=== PATIENT | male | born 1990 | race Caucasian/White ===

== ENCOUNTER 2018-10-28 04:45 | Emergency (ER) | payer BC, OTHER ==
[~2018-10-28] VITALS: Ht 177.8 cm; Wt 99.8 kg
--- OUTSIDE RECORDS SUMMARY | 2018-10-28 04:54 | XMS REPORT ---
Author Author Migration, Doctor Organization [facility] Address Unknown Phone Unavailable Care Team Providers Care Laborer Plumbing Name Role Phone Migration, Doctor Unavailable Unavailable PROBLEMS Type Condition ICD9-CM Code IVX32-CY Code Onset Dates Condition Status SNOMED Code Problem Insulin resistance E88.81 Active 16000042 Problem Seasonal allergies J30.2 Active 610497822 ALLERGIES No Information ENCOUNTERS Encounter Location Date Diagnosis [facility] [address] [address] Nov, Dermatitis due to plants, including poison hernandez, sumac, and oak L25.5 [facility] [address] [place] [address] October, Seasonal allergies J30.2 [facility] [id number] [place] [address] Feb, Allergic contact dermatitis due to plants, except food L23.[address] [address] Nov, Poison hernandez L23.7 and Insulin resistance E88.81 [place] [id number] [place] [address] October, Acute nasopharyngitis J00 and Insulin resistance E88.81 [place] [id number] [place] [address] Jun, [address] [address] Jun, Encounter for preventative adult health care examination Z00.00 and Family history of diabetes mellitus Z83.3 [place] [address] [address] Feb, 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 [facility] [address] [facility] [id number] [address] Feb, 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 [facility] [id number] [address] Sep, [facility] [address], [place] [address] Sep, [facility] [address] [facility] [id number], [place] [address] Jul, [facility] [id number] [place] [address] Jul, [facility] [address], [place] [address] Nov, [facility] [address], [place] [address] October, [facility] [address], [place] [address] October, [facility] [address], [place] [address] October, [facility] [address], [place] [address] Mar, [facility] [address], [place] [address] Mar, [facility] [address], [place] [address] Apr, IMMUNIZATIONS No Known Immunizations SOCIAL HISTORY Never Assessed REASON FOR VISIT [facility] [place] VITAL SIGNS MEDICATIONS No Known Medications RESULTS No Results PROCEDURES No Known procedures INSTRUCTIONS MEDICATIONS ADMINISTERED No Known Medications MEDICAL (GENERAL) HISTORY Type Description Date Medical History Prediabetes Surgical History Right femur repair 2003
--- OUTSIDE RECORDS SUMMARY | 2018-10-28 04:54 | XMS REPORT ---
Author Author TYLER SILVA Organization [facility] IN [facility] Address [address] [place] [address] Care Team Providers Care Director Money Name Role Phone HSIRA TYLER Unavailable PROBLEMS Type Condition ICD9-CM Code RSH33-CU Code Onset Dates Condition Status SNOMED Code Problem Insulin resistance E88.81 Active 75329017 ALLERGIES No Known Allergies ENCOUNTERS Encounter Location Date Diagnosis [facility] IN [facility] [id number] [place] [address] Feb, Allergic contact dermatitis due to plants, except food L23.7 [facility] [id number] [place] [address] Nov, Poison hernandez L23.7 and Insulin resistance E88.81 [facility] [id number] [place] [address] October, Acute nasopharyngitis J00 and Insulin resistance E88.81 [facility] [id number] [place] [address] Jun, [facility] [id number] [place] [address] Jun, Encounter for preventative adult health care examination Z00.00 and Family history of diabetes mellitus Z83.3 [facility] [id number] [place] [address] Feb, 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 [facility] [address] [place] [address] Feb, 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 [facility] [id number] [address] Sep, [facility] [id number] [address] Sep, [facility] [address] [address] Jul, [facility] [address] [address] Jul, [facility] [address] [address] Nov, [facility] [address] [address] October, [facility] [address] [address] October, [facility] [id number] [address] October, [facility] [address] [address] Mar, [facility] [address] [address] Mar, [facility] [id number] [address] Apr, IMMUNIZATIONS Vaccine Route Administration Date Status DEXAMETHASONE 4MG/ML (PER 1 MG) IM Intramuscular Feb 13, 2017 Administered DEPO MEDROL 80 MG/ML IM Intramuscular Feb 13, 2017 Administered SOCIAL HISTORY Never Assessed REASON FOR VISIT poison hernandez started Wednesday, Sinus congestion with itchy watery eyes started phillip Wall PLAN OF CARE Activity Details Follow Up prn Reason: VITAL SIGNS Height 68 in 2017-02-13 Weight 228.2 lbs 2017-02-13 Temperature 97.7 degrees Fahrenheit 2017-02-13 Heart Rate 80 bpm 2017-02-13 Respiratory Rate 20 2017-02-13 BMI 34.69 kg/m2 2017-02-13 Blood pressure systolic 110 mmHg 2017-02-13 Blood pressure diastolic 80 mmHg 2017-02-13 MEDICATIONS No Known Medications RESULTS No Results PROCEDURES Procedure Date Ordered Result Body Site DEPO MEDROL 80 MG/ML Feb 13, 2017 THER/PROPH/DIAG INJ, SC/IM Feb 13, 2017 DEXAMETHASONE 4MG/ML (PER 1 MG) Feb 13, 2017 INSTRUCTIONS MEDICATIONS ADMINISTERED No Known Medications MEDICAL (GENERAL) HISTORY Type Description Date Medical History Prediabetes Surgical History Right femur repair 2003
--- OUTSIDE RECORDS SUMMARY | 2018-10-28 04:54 | XMS REPORT ---
Author Author NAOMI POWELL Organization [facility] Address [address] [place] [address] Care Team Providers Care Manager Cargo Name Role Phone NAOMI POWELL Unavailable PROBLEMS Type Condition ICD9-CM Code FCU40-PM Code Onset Dates Condition Status SNOMED Code Problem Seasonal allergies J30.2 Active 850226512 Problem Insulin resistance E88.81 Active 89979260 ALLERGIES No Known Allergies ENCOUNTERS Encounter Location Date Diagnosis [facility] [address] [address] Nov, Dermatitis due to plants, including poison hernandez, sumac, and oak L25.5 [facility] [id number] [place] [address] October, Seasonal allergies J30.2 [facility] [address] [address] Feb, Allergic contact dermatitis due to plants, except food L23.7 [place] [id number] [place] [address] Nov, Poison hernandez L23.7 and Insulin resistance E88.81 [place] [id number] [place] [address] October, Acute nasopharyngitis J00 and Insulin resistance E88.81 [place] [address] [address] Jun, [address] [address] Jun, Encounter for preventative adult health care examination Z00.00 and Family history of diabetes mellitus Z83.3 [place] [address], [place] [address] Feb, 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 paralysis/Joanna palsy G51.0 [facility] [address], [place] [address] Feb, 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 paralysis/Joanna palsy G51.0 [facility] [address], [place] [address] Sep, [facility] [address], [place] [address] Sep, [facility] [id number] [place] [address] Jul, [facility] [address] [place] [address] Jul, [facility] [id number] [place] [address] Nov, [facility] [address], [place] [address] October, [facility] [id number] [place] [address] October, [facility] [address], [place] [address] October, [facility] [address], [place] [address] Mar, [facility] [address], [place] [address] Mar, [facility] [id number], [place] [address] Apr, IMMUNIZATIONS No Known Immunizations SOCIAL HISTORY Never Assessed REASON FOR VISIT Rash started yesterday JStrasserRN PLAN OF CARE Activity Details Follow Up 1 Week, prn Reason:if rash worsens or not improving VITAL SIGNS Height 68 in 2017-12-04 Weight 247.0 lbs 2017-12-04 Temperature 97.0 degrees Fahrenheit 2017-12-04 Heart Rate 72 bpm 2017-12-04 Respiratory Rate 20 2017-12-04 BMI 37.55 kg/m2 2017-12-04 Blood pressure systolic 110 mmHg 2017-12-04 Blood pressure diastolic 74 mmHg 2017-12-04 MEDICATIONS Medication Instructions Dosage Frequency Start Date End Date Duration Status Cetirizine HCl 10 MG Orally Once a day 1 tablet 24h 30 day(s) Not-Taking Cetirizine HCl 10 mg Orally Once a day 1 tablet 24h Nov, Dec, 07 days Active PredniSONE 20 mg Orally Once a day 2 tablets 24h Nov, Dec, 05 days Active MetFORMIN HCl ER 500 mg Orally Once a day at hs for 7 days, then 1 tab BID for 7 days then 2 tabs 2 times per day 1 tablet with evening meal Jun, 30 day(s) Not-Taking RESULTS No Results PROCEDURES No Known procedures INSTRUCTIONS MEDICATIONS ADMINISTERED No Known Medications MEDICAL (GENERAL) HISTORY Type Description Date Medical History Prediabetes Surgical History Right femur repair 2003
--- OUTSIDE RECORDS SUMMARY | 2018-10-28 04:54 | XMS REPORT ---
Author Author Migration, Doctor Organization [facility] Address Unknown Phone Unavailable Care Team Providers Care Sales Systems Engineer Name Role Phone Migration, Doctor Unavailable Unavailable PROBLEMS Type Condition ICD9-CM Code CCX35-ZL Code Onset Dates Condition Status SNOMED Code Problem Insulin resistance E88.81 Active 73302132 Problem Seasonal allergies J30.2 Active 737957090 ALLERGIES No Information ENCOUNTERS Encounter Location Date Diagnosis [facility] [address] [address] Nov, Dermatitis due to plants, including poison hernandez, sumac, and oak L25.5 [facility] [address] [place] [address] October, Seasonal allergies J30.2 [facility] [id number] [place] [address] Feb, Allergic contact dermatitis due to plants, except food L23.[address] [address] Nov, Poison hernandez L23.7 and Insulin resistance E88.81 [place] [id number] [place] [address] October, Acute nasopharyngitis J00 and Insulin resistance E88.81 [place] [id number] [place] [address] Jun, [address] [address] Jun, Encounter for preventative adult health care examination Z00.00 and Family history of diabetes mellitus Z83.3 [place] [address] [address] Feb, 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 [facility] [address] [address] Feb, 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 [facility] [address] [address] Sep, [facility] [id number] [place] [address] Sep, [facility] [address] [address] Jul, [facility] [id number] [place] [address] Jul, [facility] [id number] [place] [address] Nov, [facility] [id number] [place] [address] October, [facility] [address] [place] [address] October, [facility] [id number] [place] [address] October, [facility] [address] [address] Mar, [facility] [address] [address] Mar, [facility] [address] [address] Apr, IMMUNIZATIONS No Known Immunizations SOCIAL HISTORY Never Assessed REASON FOR VISIT [facility] [place] PLAN OF CARE VITAL SIGNS MEDICATIONS Medication Instructions Dosage Frequency Start Date End Date Duration Status Augmentin 875-125 mg 1 Tablet by Po route 2 times per day take with food. Jul, Active RESULTS No Results PROCEDURES No Known procedures INSTRUCTIONS MEDICATIONS ADMINISTERED No Known Medications MEDICAL (GENERAL) HISTORY Type Description Date Medical History Prediabetes Surgical History Right femur repair 2003
--- OUTSIDE RECORDS SUMMARY | 2018-10-28 04:54 | XMS REPORT ---
Author Author LILIA CHRIS [facility] Address [address] [place] [address] Care Team Providers Care Hvac Design Mechanical Engineer Name Role Phone LILIA CHRIS Unavailable PROBLEMS Type Condition ICD9-CM Code VAF84-DO Code Onset Dates Condition Status SNOMED Code Problem Insulin resistance E88.81 Active 46678976 ALLERGIES Substance Reaction Event Type Date Status N.K.D.A. Unknown Non Drug Allergy Jun, Unknown SOCIAL HISTORY No smoking Hx information available PLAN OF CARE VITAL SIGNS MEDICATIONS Medication Instructions Dosage Frequency Start Date End Date Duration Status MetFORMIN HCl ER 500 MG Orally Once a day at hs for 7 days, then 1 tab BID for 7 days then 2 tabs 2 times per day 1 tablet with evening meal Jun, 30 day(s) Active RESULTS No Results PROCEDURES No Known procedures IMMUNIZATIONS No Known Immunizations
--- OUTSIDE RECORDS SUMMARY | 2018-10-28 04:54 | XMS REPORT ---
Author Author LILIA CHRIS [facility] Address [address] [place] [address] Care Team Providers Care Rcp Name Role Phone LILIA CHRIS Unavailable PROBLEMS Type Condition ICD9-CM Code VPV39-DP Code Onset Dates Condition Status SNOMED Code Problem Insulin resistance E88.81 Active 13766348 ALLERGIES Substance Reaction Event Type Date Status N.K.D.A. Unknown Non Drug Allergy Jun, Unknown SOCIAL HISTORY No smoking Hx information available PLAN OF CARE Activity Details Follow Up prn Reason: VITAL SIGNS Height 68 in 2016-06-29 Weight 236.2 lbs 2016-06-29 Temperature 97.6 degrees Fahrenheit 2016-06-29 Heart Rate 84 bpm 2016-06-29 Respiratory Rate 18 2016-06-29 BMI 35.91 kg/m2 2016-06-29 Blood pressure systolic 116 mmHg 2016-06-29 Blood pressure diastolic 88 mmHg 2016-06-29 MEDICATIONS No Known Medications RESULTS Name Result Date Reference Range INSULIN LEVEL 2016-06-29 Insulin 67.6 2.6-24.9 A1C (IN HOUSE) 2016-06-29 A1C IN HOUSE 5.3 4.3 - 5.6 % Previous A1c n/a Lot [id number] Exp date 03/2018 CMP 2016-06-29 Glucose, Serum 107 65-99 BUN 9 6-20 Creatinine, Serum 0.99 0.76-1.27 eGFR If NonAfricn Am 105 >59 eGFR If Africn Am 121 >59 BUN/Creatinine Ratio 9 8-19 Sodium, Serum 139 134-144 Potassium, Serum 4.2 3.5-5.2 Chloride, Serum 101 96-106 Carbon Dioxide, Total 22 18-29 Calcium, Serum 9.2 8.7-10.2 Protein, Total, Serum 7.2 6.0-8.5 Albumin, Serum 4.4 3.5-5.5 Globulin, Total 2.8 1.5-4.5 A/G Ratio 1.6 1.1-2.5 Bilirubin, Total <0.2 0.0-1.2 Alkaline Phosphatase, S 99 39-117 AST (SGOT) 37 0-40 ALT (SGPT) 44 0-44 PROCEDURES Procedure Date Ordered Related Diagnosis Body Site COMPREHEN METABOLIC PANEL Jun 29, 2016 GLYCATED HEMOGLOBIN TEST Jun 29, 2016 Preventive Care Est Pt. Age 18-39 Jun 29, 2016 ASSAY OF INSULIN Jun 29, 2016 VENIPUNCT, ROUTINE* Jun 29, 2016 IMMUNIZATIONS No Known Immunizations
--- OUTSIDE RECORDS SUMMARY | 2018-10-28 04:54 | XMS REPORT ---
Author Author LUIS LAW [facility] Address [address] [place] [address] Care Team Providers Care Tax Staff Accountant Name Role Phone LUIS LAW Unavailable PROBLEMS Type Condition ICD9-CM Code RRA50-HP Code Onset Dates Condition Status SNOMED Code Problem Insulin resistance E88.81 Active 63983552 ALLERGIES No Known Allergies SOCIAL HISTORY Never Assessed PLAN OF CARE Activity Details Follow Up 3 Months Reason: VITAL SIGNS Height 68 in 2016-10-16 Weight 230 lbs 2016-10-16 Temperature 98.6 degrees Fahrenheit 2016-10-16 Heart Rate 78 bpm 2016-10-16 Respiratory Rate 18 2016-10-16 BMI 34.97 kg/m2 2016-10-16 Blood pressure systolic 116 mmHg 2016-10-16 Blood pressure diastolic 74 mmHg 2016-10-16 MEDICATIONS Medication Instructions Dosage Frequency Start Date End Date Duration Status MetFORMIN HCl ER 500 mg Orally Once a day at hs for 7 days, then 1 tab BID for 7 days then 2 tabs 2 times per day 1 tablet with evening meal Jun, 30 day(s) Active Pseudoephedrine HCl 60 mg Orally every 6 hrs 1 tablet as needed 6h October, 05 days Active RESULTS No Results PROCEDURES No Known procedures IMMUNIZATIONS No Known Immunizations MEDICAL (GENERAL) HISTORY Type Description Date Medical History Prediabetes Surgical History Right femur repair 2003
--- OUTSIDE RECORDS SUMMARY | 2018-10-28 04:54 | XMS REPORT ---
Author Author TONY CHAMORRO [facility] Address [address] [place] [address] Care Team Providers Care Best Worker Name Role Phone TONY CHAMORRO Unavailable PROBLEMS Type Condition ICD9-CM Code DMM67-DQ Code Onset Dates Condition Status SNOMED Code Problem Seasonal allergies J30.2 Active 660143781 Problem Insulin resistance E88.81 Active 25197369 ALLERGIES No Known Allergies ENCOUNTERS Encounter Location Date Diagnosis [facility] [address] [address] Nov, Dermatitis due to plants, including poison hernandez, sumac, and oak L25.5 [facility] [address] [address] October, Seasonal allergies J30.2 [facility] [address] [address] 09 Feb, 2017 Allergic contact dermatitis due to plants, except food L23.7 [place] [address] [address] Nov, Poison hernandez L23.7 and Insulin resistance E88.81 [place] [address] [id number] [place] [address] October, Acute nasopharyngitis J00 and Insulin resistance E88.81 [place] [address] [address] Jun, [place] [id number] [place] [address] Jun, Encounter for preventative adult health care examination Z00.00 and Family history of diabetes mellitus Z83.3 [place] [address], [place] [address] Feb, 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 [facility] [address], [place] [address] Feb, 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 [facility] [address] [place] [address] Sep, [facility] [address] [place] [address] Sep, [facility] [id number] [place] [address] Jul, [facility] [id number] [place] [address] Jul, [facility] [id number] [place] [address] Nov, [facility] [id number] [place] [address] October, [facility] [id number] [place] [address] October, [facility] [address], [place] [address] October, [facility] [address] [place] [address] Mar, [facility] [address], [place] [address] Mar, [facility] [id number] [place] [address] Apr, IMMUNIZATIONS No Known Immunizations SOCIAL HISTORY Never Assessed REASON FOR VISIT congestion Pt c/o cough for over a week to the point of vomiting DEEPAK Goncalves PLAN OF CARE Activity Details Follow Up prn Reason: VITAL SIGNS Height 68 in 2017-10-19 Weight 243.6 lbs 2017-10-19 Temperature 98.0 degrees Fahrenheit 2017-10-19 Heart Rate 88 bpm 2017-10-19 Respiratory Rate 20 2017-10-19 BMI 37.04 kg/m2 2017-10-19 Blood pressure systolic 112 mmHg 2017-10-19 Blood pressure diastolic 64 mmHg 2017-10-19 MEDICATIONS Medication Instructions Dosage Frequency Start Date End Date Duration Status MetFORMIN HCl ER 500 mg Orally Once a day at hs for 7 days, then 1 tab BID for 7 days then 2 tabs 2 times per day 1 tablet with evening meal Jun, 30 day(s) Not-Taking Pseudoephedrine HCl 60 mg Orally every 6 hrs 1 tablet as needed 6h October, 05 days Not-Taking Cetirizine HCl 10 MG Orally Once a day 1 tablet 24h 30 day(s) Active RESULTS No Results PROCEDURES No Known procedures INSTRUCTIONS MEDICATIONS ADMINISTERED No Known Medications MEDICAL (GENERAL) HISTORY Type Description Date Medical History Prediabetes Surgical History Right femur repair 2003
--- OUTSIDE RECORDS SUMMARY | 2018-10-28 04:54 | XMS REPORT ---
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 Unknown Non Drug Allergy Feb, Unknown SOCIAL HISTORY No smoking Hx information available PLAN OF CARE VITAL SIGNS Height 68 in 2016-02-26 Weight 217.6 lbs 2016-02-26 Heart Rate 80 bpm 2016-02-26 Respiratory Rate 18 2016-02-26 BMI 33.08 kg/m2 2016-02-26 Blood pressure systolic 144 mmHg 2016-02-26 Blood pressure diastolic 88 mmHg 2016-02-26 MEDICATIONS Medication Instructions Dosage Frequency Start Date End Date Duration Status Nasal Allergy Active PredniSONE 10 mg Orally twice a day 1 tablet 12h Feb, Feb, Active [facility] Lubricant Eye Drops 0.5 % Ophthalmic 5 times per day 1 drop into affected eye as needed Feb, Active RESULTS No Results PROCEDURES Procedure Date Ordered Related Diagnosis Body Site Office Visit, Est Pt., Level 3 Feb 26, 2016 DEXAMETHASONE 4MG/ML (PER 1 MG) Feb 26, 2016 THER/PROPH/DIAG INJ, SC/IM Feb 26, 2016 IMMUNIZATIONS Vaccine Route Administration Date Status DEXAMETHASONE 4MG/ML (PER 1 MG) IM Intramuscular Feb 26, 2016 Administered
--- OUTSIDE RECORDS SUMMARY | 2018-10-28 04:54 | XMS REPORT ---
Author Author LUIS LAW [facility] Address [address] [place] [address] Care Team Providers Care Hearing Aid Fitter Name Role Phone LUIS LAW Unavailable PROBLEMS Type Condition ICD9-CM Code TAY56-ED Code Onset Dates Condition Status SNOMED Code Problem Insulin resistance E88.81 Active 80052700 ALLERGIES No Known Allergies ENCOUNTERS Encounter Location Date Diagnosis [facility] [id number] [place] [phone] Feb, Allergic contact dermatitis due to plants, except food L23.7 [facility] [id number] [place] [phone] Nov, Poison hernandez L23.7 and Insulin resistance E88.81 [facility] [id number] [place] [address] October, Acute nasopharyngitis J00 and Insulin resistance E88.81 [facility] [id number] [place] [address] Jun, [facility] [id number] [place] [phone] Jun, Encounter for preventative adult health care examination Z00.00 and Family history of diabetes mellitus Z83.3 [facility] [id number] [place] [phone] Feb, 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 paralysis/Benedicta palsy G51.0 [facility] [id number] [place] [phone] Feb, 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 paralysis/Benedicta palsy G51.0 [facility] [address] [address] Sep, [facility] [address] [address] Sep, [facility] [address] [address] Jul, [facility] [address] [address] Jul, [facility] [id number] [place] [phone] Nov, [facility] [id number] [place] [phone] October, [facility] [id number] [place] [phone] October, [facility] [id number] [place] [phone] October, [facility] [address] [address] Mar, [facility] [id number] [place] [phone] Mar, [facility] [address] [address] Apr, IMMUNIZATIONS No Known Immunizations SOCIAL HISTORY Never Assessed REASON FOR VISIT Rash - Has had a rash on the arms, legs, and torso for a couple days and tried o tc hydrocortisone cream and its not working. It is worse when he gets hot. - JUSITN garcia MA PLAN OF CARE Activity Details Follow Up 3 Months Reason: VITAL SIGNS Height 68 in 2016-11-06 Weight 231.6 lbs 2016-11-06 Temperature 98.2 degrees Fahrenheit 2016-11-06 Heart Rate 84 bpm 2016-11-06 Respiratory Rate 20 2016-11-06 BMI 35.21 kg/m2 2016-11-06 Blood pressure systolic 132 mmHg 2016-11-06 Blood pressure diastolic 84 mmHg 2016-11-06 MEDICATIONS Medication Instructions Dosage Frequency Start Date End Date Duration Status PredniSONE 50 mg Orally Once a day 1 tablet 24h Nov, Nov, 05 days Active RESULTS No Results PROCEDURES No Known procedures INSTRUCTIONS MEDICATIONS ADMINISTERED No Known Medications MEDICAL (GENERAL) HISTORY Type Description Date Medical History Prediabetes Surgical History Right femur repair 2003
--- OUTSIDE RECORDS SUMMARY | 2018-10-28 04:54 | XMS REPORT ---
Author Author Migration, Doctor Organization [facility] Address Unknown Phone Unavailable Care Team Providers Care Blanket Inspector Name Role Phone Migration, Doctor Unavailable Unavailable PROBLEMS Type Condition ICD9-CM Code FBL78-YI Code Onset Dates Condition Status SNOMED Code Problem Insulin resistance E88.81 Active 64392432 Problem Seasonal allergies J30.2 Active 223025450 ALLERGIES No Information ENCOUNTERS Encounter Location Date Diagnosis [facility] [address] [address] Nov, Dermatitis due to plants, including poison hernandez, sumac, and oak L25.5 [facility] [address] [place] [address] October, Seasonal allergies J30.2 [facility] [id number] [place] [address] Feb, Allergic contact dermatitis due to plants, except food L23.[address] [address] Nov, Poison hernandez L23.7 and Insulin resistance E88.81 [place] [facility] [id number] [place] [address] October, Acute nasopharyngitis J00 and Insulin resistance E88.81 [facility] [facility] [id number] [place] [address] Jun, [address] [address] Jun, Encounter for preventative adult health care examination Z00.00 and Family history of diabetes mellitus Z83.3 [place] [address] [address] Feb, 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 paralysis/Pillow palsy G51.0 [facility] [address] [facility] [id number] [address] Feb, 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 paralysis/Pillow palsy G51.0 [facility] [id number] [address] Sep, [facility] [address] [address] Sep, [facility] [address] [facility] [id number] [address] Jul, [facility] [id number] [place] [address] Jul, [facility] [address] [address] Nov, [facility] [address] [address] October, [facility] [address] [address] October, [facility] [address] [address] October, [facility] [address] [address] Mar, [facility] [address] [address] Mar, [facility] [address] [address] Apr, IMMUNIZATIONS No Known Immunizations SOCIAL HISTORY Never Assessed REASON FOR VISIT [facility] PLAN OF CARE VITAL SIGNS MEDICATIONS No Known Medications RESULTS No Results PROCEDURES No Known procedures INSTRUCTIONS MEDICATIONS ADMINISTERED No Known Medications MEDICAL (GENERAL) HISTORY Type Description Date Medical History Prediabetes Surgical History Right femur repair 2003
--- OUTSIDE RECORDS SUMMARY | 2018-10-28 04:55 | XMS REPORT | Continuity of Care Document ---
Demographics Preferred Language Unknown Marital Status Unknown Evangelical Affiliation Unknown Race Unknown Ethnic Group Unknown Author Organization Unknown Address Unknown Allergies Active Description Code Type Severity Reaction Onset Reported/Identified Relationship to Patient Clinical Status Yes No Known Drug Allergies [id number] Drug Allergy Unknown N/A 08/29/2015 Medications There is no data. 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 10/18/2012 783.5 POLYDIPSIA 10/18/2012 788.42 POLYURIA 10/18/2012 V18.0 FAMILY HISTORY OF DIABETES MELLITUS 08/29/2015 ZARINA EISENBERG APRN Ot L29.9 PRURITUS, UNSPECIFIED 08/29/2015 ZARINA EISENBERG APRN Ot M79.89 OTHER SPECIFIED SOFT TISSUE DISORDERS 08/30/2015 ZARINA EISENBERG APRN Ot L29.9 08/30/2015 ZARINA EISENBERG APRN Ot M79.89 Procedures Code [place] [address] ROUTINE VENIPUNCTURE 10/18/2012 04051 A1C (IN-HOUSE) 10/18/2012 29743 MICRO ALBUMIN-IN HOUSE 10/18/2012 54060 CBC 10/18/2012 70016 CMP 10/18/2012 [id number] GFR CALC (RESULT ONLY) 10/18/2012 50721 TSH 10/18/2012 14201 INSULIN LEVEL 10/19/2012 Results There is no data. Encounters ACCT No. Visit Date/Time Discharge Status Pt. Type Provider Facility Loc./Unit Complaint [id number] 10/18/2012 11:29:00 Document Registration [id number] 10/14/2018 16:00:00 10/14/2018 23:59:59 CLS Outpatient [facility] [id number] 08/29/2015 18:00:00 08/29/2015 19:19:00 DIS Emergency ZARINA EISENBERG APRN Via [facility] ER POSSIBLE ALLERGIC REACTION
[2018-10-28] MEDS ORDERED: FAMOTIDINE 20MG/2ML IV (PEPCID) IV STA (05:16)
[2018-10-28] MEDS ORDERED: methylPREDNISolone 125 MG (Solu-MEDROL) VIAL IV STA (05:16)
[2018-10-28] MEDS ORDERED: CLINDAMYCIN 600 MG/4ML (CLEOCIN) VIAL IV STA (05:16)
--- NOTE | 2018-10-28 05:27 | ED Integumentary General ---
General Chief Complaint: Bite-Animal/Human/Insect Stated Complaint: RT ARM SWELLING & RED, STUNG BY WASP Nursing Triage Note: PT ARRIVES TO ED BY POV AND AMB TO ROOM 6, A/OX3. PT REPORTS BEING STUNG BY WASP LAST NIGHT AROUND 1800 ON RIGHT WRIST AND WOKE UP TODAY WITH A RED, SWOLLEN, [id number]-TOUCH RIGHT HAND/ARM. PT REPORTS LIMITED ROM. DENIES FEVERS AND CHILLS AT THIS TIME. PT RATES PAIN AT A 3/10. Source: patient History of Present Illness Date Seen by Provider: October 28, 2018 Time Seen by Provider: 05:10 Initial Comments PT ARRIVES VIA POV-DROVE SELF HERE STATES YESTERDAY AROUND 1800. HE WAS STUNG BY A WASP ON RIGHT WRIST STATES THIS AM, HE HAS HAD INCREASED PAIN, REDNESS AND SWELLING ALL THE WAY UP TO HIS ELBOW NO FEVER NO SIGNIFICANT ITCHING NO DRAINAGE NO DIFFICULTY BREATHING OR WHEEZING NO SWELLING TO LIPS/TONGUE, ETC. AND NO DIFFICULTY SWALLOWING TOOK BENADRYL YESTERDAY, BUT OTHERWISE HAS NOT TAKEN ANYTHING ELSE FOR SYMPTOMS NO HISTORY OF SIMILAR LAST TETANUS IS UNKNOWN PCP: DR. FISH, ALSO GOES TO [facility] ON OCCASION Allergies and Home Medications Allergies Coded Allergies: No Known Drug Allergies (Unverified , 08/29/15) Home Medications Methylprednisolone 4 Mg Tab.ds.pk, 4 MG PO UD Prescribed by: PRASHANT SCHNEIDER on 10/28/18 06 Sulfamethoxazole/Trimethoprim 1 Each Tablet, 1 EACH PO BID Prescribed by: PRASHANT SCHNEIDER on 10/28/18 06 Patient Home Medication List Home Medication List Reviewed: Yes Review of Systems Review of Systems Constitutional: no symptoms reported EENTM: no symptoms reported Respiratory: no symptoms reported Cardiovascular: no symptoms reported Gastrointestinal: no symptoms reported Genitourinary: no symptoms reported Musculoskeletal: see HPI Skin: see HPI Psychiatric/Neurological: No Symptoms Reported Endocrine: No Symptoms Reported Past Urregsf-Dwrofz-Jyhzcg Hx Patient Social History Alcohol Use: Occasionally Uses Recreational Drug Use: No Smoking Status: Former Smoker (1 PACK /WEEK--QUIT 2014) 2nd Hand Smoke Exposure: No Recent Foreign Travel: No Contact w/Someone Who Travel: No Recent Infectious Disease Expo: No Recent Hopitalizations: No Immunizations Up To Date Tetanus Booster (TDap): Unknown Seasonal Allergies Seasonal Allergies: Yes Past Medical History Surgeries: No Respiratory: No Cardiac: No Neurological: No Reproductive Disorders: No Genitourinary: No Gastrointestinal: No Musculoskeletal: No Endocrine: No HEENT: No Cancer: No Psychosocial: No Integumentary: No Physical Exam Vital Signs Vital Signs - First Documented 10/28/18 05:03 Temp 97.5 Pulse 81 Resp 18 B/P (MAP) 126/93 (104) Pulse Ox 97 O2 Delivery Room Air Capillary Refill : Less Than 3 Seconds General Appearance: WD/WN, no apparent distress HEENT: PERRL/EOMI, other (NO SWELLING TO LIPS OR TONGUE) Neck: normal inspection Cardiovascular: normal peripheral pulses, regular rate, rhythm Respiratory: normal breath sounds, no respiratory distress Extremities: normal capillary refill, other (RIGHT ARM--STING SITE TO RIGHT ANTERIOR WRIST, WITH MODERATE SWELLING OF RIGHT HAND AND ANTERIOR FOREARM, WITH ERYTHEMA AND INDURATION EXTENDING TO AC SPACE. THIS IS NOT CIRCUMFERENTIAL. NO AREAS OF FLUCTUANCE. NO DRAINAGE. NO STREAKS. MOTOR/SENSORY/VASCULAR INTACT. ) Neurologic/Psychiatric: director of design II-XII nml as tested, no motor/sensory deficits, alert, normal mood/affect, oriented x 3 Skin: normal color, warm/dry, other ( ABOVE) Progress/Results/Core Measures Results/Orders Lab Results Laboratory Tests Test 10/28/18 05:27 Range/Units White Blood Count 8.7 4.3-11.0 10^3/uL Red Blood Count 5.24 4.35-5.85 10^6/uL Hemoglobin 15.4 13.3-17.7 G/DL Hematocrit 44 40-54 % Mean Corpuscular Volume 85 80-99 FL Mean Corpuscular Hemoglobin 29 25-34 PG Mean Corpuscular Hemoglobin Concent 35 32-36 G/DL Red Cell Distribution Width 13.1 10.0-14.5 % Platelet Count 246 130-400 10^3/uL Mean Platelet Volume 9.9 7.4-10.4 FL Neutrophils (%) (Auto) 62 42-75 % Lymphocytes (%) (Auto) 27 12-44 % Monocytes (%) (Auto) 9 0-12 % Eosinophils (%) (Auto) 2 0-10 % Basophils (%) (Auto) 0 0-10 % Neutrophils # (Auto) 5.4 1.8-7.8 X 10^3 Lymphocytes # (Auto) 2.4 1.0-4.0 X 10^3 Monocytes # (Auto) 0.8 0.0-1.0 X 10^3 Eosinophils # (Auto) 0.2 0.0-0.3 10^3/uL Basophils # (Auto) 0.0 0.0-0.1 10^3/uL Sodium Level 138 135-145 MMOL/L Potassium Level 3.6 3.6-5.0 MMOL/L Chloride Level 104 98-107 MMOL/L Carbon Dioxide Level 23 21-32 MMOL/L Anion Gap 11 5-14 MMOL/L Blood Urea Nitrogen 16 7-18 MG/DL Creatinine 1.24 0.60-1.30 MG/DL Estimat Glomerular Filtration Rate > 60 BUN/Creatinine Ratio 13 Glucose Level 96 70-105 MG/DL Calcium Level 9.2 8.5-10.1 MG/DL Corrected Calcium 9.0 8.5-10.1 MG/DL Total Bilirubin 0.9 0.1-1.0 MG/DL Aspartate Amino Transf (AST/SGOT) 26 5-34 U/L Alanine Aminotransferase (ALT/SGPT) 36 0-55 U/L Alkaline Phosphatase 63 40-136 U/L Total Protein 7.2 6.4-8.2 GM/DL Albumin 4.2 3.2-4.5 GM/DL My Orders Orders - PRASHANT SCHNEIDER DO Ed Iv/Invasive Line Start (10/28/18 05:16) Cbc With Automated Diff (10/28/18 05:16) Comprehensive Metabolic Panel (10/28/18 05:16) Clindamycin Injection (Cleocin Injection (10/28/18 05:16) Methylprednisolone Sod Succ (Solu-Medrol (10/28/18 05:16) Famotidine Injection (Pepcid Injection) (10/28/18 05:16) Dipht,Pertuss(Acell),Tet Adult (Boostrix (10/28/18 05:30) Clindamycin 600 Mg/50 Ml Ivpb (Cleocin P (10/28/18 05:32) Clindamycin Injection (Cleocin Injection (10/28/18 05:54) Medications Given in ED Current Medications Medications Dose Ordered Sig/Rebecca Route Start Time Stop Time Status Last Admin Dose Admin Diphtheria/ Tetanus/Acell Pertussis 0.5 ml ONCE ONCE IM 10/28/18 05:30 10/28/18 05:31 DC 10/28/18 05:41 0.5 ML Vital Signs/I&O 10/28/18 05:03 Temp 97.5 Pulse 81 Resp 18 B/P (MAP) 126/93 (104) Pulse Ox 97 O2 Delivery Room Air Blood Pressure Mean: 104 Progress Progress Note : Progress Note GIVEN SOLU-MEDROL, PEPCID, CLINDAMYCIN AND DPT VACCINATION Departure Impression Primary Impression: WASP STING WITH LOCAL CELLULITIS/LOCAL REACTION TO RIGHT FOREARM Additional Impression: Brkmqzolsn-embmovssu-nakzzip (DPT) vaccination administered at current visit Disposition: HOME, SELF-CARE Condition: Stable Departure-Patient Inst. Referrals: PRASHANT FISH MD (PCP/Family) Primary Care Physician Patient Instructions: Diphtheria and Tetanus Toxoids, and Acellular Pertussis Vaccine, Insect Bites and Stings (DC) Add. Discharge Instructions: COOL COMPRESSES TO AREA ELEVATE ARM MUCH POSSIBLE TYLENOL NEEDED FOR PAIN CLARITIN 10 MG IN AM, BENADRYL 50 MG IN PM FOR REDNESS AND ITCHING FOLLOW UP WITH YOUR DR IF SYMPTOMS WORSEN All discharge instructions reviewed with patient and/or family. Voiced understanding. Scripts Methylprednisolone (Medrol) 4 Mg Tab.ds.pk 4 MG PO UD, #1 PKG Prov: PRASHANT SCHNEIDER DO 10/28/18 Sulfamethoxazole/Trimethoprim (Bactrim Ds Tablet) 1 Each Tablet 1 EACH PO BID, #20 TAB Prov: PRASHANT SCHNEIDER DO 10/28/18 PRASHANT SCHNEIDER DO October 28, 2018 05:27
[2018-10-28] MEDS ORDERED: TETANUS,DIPTH,PERTUSS P/F (BOOSTRIX) 0.5 ML VIAL IM ONE (05:30)
[2018-10-28] MEDS ORDERED: CLINDAMYCIN 600 MG/50 ML IVPB 0 ML IV ONE (05:32)
[2018-10-28 05:40] LABS: BASOPHILS % (AUTO) 0 % (0-10); EOSINOPHILS # (AUTO) 0.2 10^3/uL (0.0-0.3); EOSINOPHILS % (AUTO) 2 % (0-10); HEMATOCRIT 44 % (40-54); HEMOGLOBIN 15.4 G/DL (13.3-17.7); LYMPHOCYTES # (AUTO) 2.4 X 10^3 (1.0-4.0); LYMPHOCYTES % (AUTO) 27 % (12-44); MEAN CORPUSCULAR HEMOGLOBIN 29 PG (25-34); MEAN CORPUSCULAR HGB CONC 35 G/DL (32-36); MEAN CORPUSCULAR VOLUME 85 FL (80-99); MEAN PLATELET VOLUME 9.9 FL (7.4-10.4); MONOCYTES # (AUTO) 0.8 X 10^3 (0.0-1.0); MONOCYTES % (AUTO) 9 % (0-12); NEUTROPHILS # (AUTO) 5.4 X 10^3 (1.8-7.8); NEUTROPHILS % (AUTO) 62 % (42-75); PLATELET COUNT 246 10^3/uL (130-400); RED CELL DISTRIBUTION WIDTH 13.1 % (10.0-14.5); WHITE BLOOD COUNT 8.7 10^3/uL (4.3-11.0)
[2018-10-28] MEDS ORDERED: CLINDAMYCIN 600 MG/4ML (CLEOCIN) VIAL ONE (05:54)
[2018-10-28 05:55] LABS: ALANINE AMINOTRANSFERASE 36 U/L (0-55); ALBUMIN 4.2 GM/DL (3.2-4.5); ALKALINE PHOSPHATASE 63 U/L (40-136); BILIRUBIN,TOTAL 0.9 MG/DL (0.1-1.0); BUN/CREATININE RATIO 13; CALCIUM 9.2 MG/DL (8.5-10.1); CARBON DIOXIDE 23 MMOL/L (21-32); CHLORIDE 104 MMOL/L (98-107); CREATININE SERUM 1.24 MG/DL (0.60-1.30); GFR ESTIMATED > 60; GLUCOSE 96 MG/DL (70-105); POTASSIUM 3.6 MMOL/L (3.6-5.0); SODIUM 138 MMOL/L (135-145); TOTAL PROTEIN 7.2 GM/DL (6.4-8.2)
[2018-10-28] MEDS ORDERED: METH4TAB PO (06:00)
[2018-10-28] MEDS ORDERED: SULF1TAB35 PO (06:00)
[2018-10-28 07:05] VITALS: BP 117/95
== END 2018-10-28 07:07 | disposition home or self-care (01) ==
LOC: EDUNIT# 04:45 → ER 04:50
DX: T63.461A Toxic effect of venom of wasps, accidental (unintentional), initial encounter (principal); L03.113 Cellulitis of right upper limb; Z79.52 Long term (current) use of systemic steroids; Z87.891 Personal history of nicotine dependence; Z23 Encounter for immunization
CPT/HCPCS: 36415; 80053; 85025; 90715

== ENCOUNTER 2020-12-16 03:41 | Emergency (ER) | payer SELFPAY ==
[~2020-12-16] VITALS: Ht 180 cm; Wt 115.7 kg
[~2020-12-16 03:41] MED LIST: METH4TAB PO; SULF1TAB38 PO
[2020-12-16 03:45] VITALS: BP 115/96
[2020-12-16] MEDS ORDERED: PRD50T PO (03:57)
--- NOTE | 2020-12-16 03:57 | ED Integumentary General ---
General Stated Complaint: RASH ALL OVER Source: patient Exam Limitations: no limitations History of Present Illness Date Seen by Provider: Dec 16, 2020 Time Seen by Provider: 03:41 Initial Comments Patient is a 30-year-old male who presents to the emergency department today with a chief complaint of hives all over his body. Patient states he woke up between 2 and 230 this morning with a rash and abdominal pain and a little diarrhea. Patient cannot recall any triggers for the rash. He states that last night he was helping a friend take shingles off of a roof. No other new soaps, detergents, any other triggers that he can think of. He has never had hives like this before. He did take 3 Benadryl when he woke up at around 230 but has not had any relief of symptoms. He has got a mild sore throat. No difficulty breathing or swallowing. All other review of systems reviewed and negative except as stated. Timing/Duration: just prior to arrival Severity: severe Location: generalized Possible Cause: no cause identified Modifying Factors: improves with antihistamine Associated Symptoms: change in skin texture, flushing, sore throat, other (abdominal pain and diarrhea) Allergies and Home Medications Allergies Coded Allergies: No Known Drug Allergies (Unverified , 08/29/15) Home Medications Methylprednisolone 4 Mg Tab.ds.pk, 4 MG PO UD Prescribed by: PRAHSANT SCHNEIDER on 10/28/18 06 Prednisone 50 Mg Tab, 50 MG PO DAILY Prescribed by: SKY ROSA on 12/16/20 0357 Sulfamethoxazole/Trimethoprim 1 Each Tablet, 1 EACH PO BID Prescribed by: PRASHANT SCHNEIDER on 10/28/18 06 Patient Home Medication List Home Medication List Reviewed: Yes Review of Systems Review of Systems Constitutional: see HPI EENTM: throat pain Respiratory: no symptoms reported Cardiovascular: no symptoms reported Gastrointestinal: abdominal pain, diarrhea Genitourinary: no symptoms reported Musculoskeletal: no symptoms reported Skin: pruritus, rash Psychiatric/Neurological: No Symptoms Reported All Other Systems Reviewed Negative Unless Noted: Yes Past Sdqornm-Ziandg-Lrfwff Hx Immunizations Up To Date Tetanus Booster (TDap): Unknown Seasonal Allergies Seasonal Allergies: Yes Past Medical History Surgeries: No Respiratory: No Cardiac: No Neurological: No Reproductive Disorders: No Genitourinary: No Gastrointestinal: No Musculoskeletal: No Endocrine: No HEENT: No Cancer: No Psychosocial: No Integumentary: No Physical Exam Vital Signs Vital Signs - First Documented 12/16/20 03:45 Temp 36.5 Pulse 103 Resp 16 B/P (MAP) 115/96 (102) O2 Delivery Room Air Capillary Refill : General Appearance: WD/WN, no apparent distress HEENT: PERRL/EOMI, pharyngeal erythema Neck: normal inspection Cardiovascular: regular rate, rhythm Respiratory: lungs clear, normal breath sounds, no respiratory distress, no accessory muscle use Gastrointestinal: non tender, soft Extremities: normal inspection, no pedal edema, no calf tenderness Neurologic/Psychiatric: alert, normal mood/affect, oriented x 3 Skin: rash Skin Problem Location: generalized Skin Problem Character: urticarial Progress/Results/Core Measures Results/Orders My Orders Orders - SKY ROSA MD Prednisone Tablet (Deltasone Tablet) (12/16/20 04:00) Famotidine Tablet (Pepcid Tablet) (12/16/20 04:00) Medications Given in ED Current Medications Medications Dose Ordered Sig/Rebecca Route Start Time Stop Time Status Last Admin Dose Admin Famotidine 20 mg ONCE ONCE PO 12/16/20 04:00 12/16/20 04:02 DC 12/16/20 04:02 20 MG Prednisone 50 mg ONCE ONCE PO 12/16/20 04:00 12/16/20 04:02 DC 12/16/20 04:03 50 MG Vital Signs/I&O 12/16/20 03:45 Temp 36.5 Pulse 103 Resp 16 B/P (MAP) 115/96 (102) O2 Delivery Room Air Progress Progress Note : Time: 04:40 Progress Note Patient states he feels a little bit better. Have encouraged Benadryl and Pepcid to go along with his prednisone. Patient will be given a work note for today. He verbalized understanding of the discharge plan is agreeable. All questions are sought and answered. Patient is stable for discharge. Departure Impression Primary Impression: Hives Disposition: 01 HOME, SELF-CARE Condition: Stable Departure-Patient Inst. Decision time for Depature: 03:54 Referrals: PRASHANT FISH MD (PCP/Family) Primary Care Physician Patient Instructions: Hives Add. Discharge Instructions: Take the steroids daily as prescribed for 5 days. Over the counter benadryl 2-3 tablets every 6 hours as needed for itching. Pepcid (over the counter) 20mg twice a day for 5 days as well. This will work with the benadryl to help your itching. Follow up with your primary care provider. Return to the Emergency Department for any worsening rash, difficulty breathing or swallowing or any other emergent, concerning symptoms. Scripts Prednisone (Prednisone) 50 Mg Tab 50 MG PO DAILY for 5 Days, #5 TAB Prov: SKY ROSA MD 12/16/20 Work/School Note: Work Release Form Date Seen in the Emergency Department: Dec 16, 2020 Return to Work: Dec 17, 2020 SKY ROSA MD Dec 16, 2020 03:57
[2020-12-16] MEDS ORDERED: predniSONE 20 MG TAB PO ONE (04:00)
[2020-12-16] MEDS ORDERED: FAMOTIDINE 20 MG (PEPCID) TABLET PO ONE (04:00)
== END 2020-12-16 04:45 | disposition home or self-care (01) ==
LOC: EDUNIT# 03:41 → ER 03:42
DX: L50.9 Urticaria, unspecified (principal)
CPT/HCPCS: 99283